=== PATIENT | male | born 2000 | race Caucasian/White ===

== ENCOUNTER 2022-02-17 14:21 | Outpatient (REF) | payer MEDICAID, SELFPAY ==
--- NOTE | ~2022-02-17 | XR_ITS ---
EXAMINATION: XR HAND, RIGHT CLINICAL INFORMATION: Punching injury on Thursday. Pain fifth digit COMPARISON: None TECHNIQUE: PA, lateral, and oblique views of the right hand. FINDINGS: There is a nondisplaced fracture base of fifth metatarsal without angulation. There is mild soft tissue swelling. No additional fracture seen. XR/XR hand RT min 3V IMPRESSION: Fracture proximal/base of fifth metacarpal without displacement or angulation. There is mild soft tissue swelling.
== END 2022-02-17 14:22 | disposition home or self-care (01) ==
LOC: HO.XRAY 14:21
PROVIDERS: PCP Pediatrics
DX: M25.541 Pain in joints of right hand (principal); S62.346A Nondisplaced fracture of base of fifth metacarpal bone, right hand, initial encounter for closed fracture; W22.8XXA Striking against or struck by other objects, initial encounter; Y93.9 Activity, unspecified; Y92.9 Unspecified place or not applicable; Y99.8 Other external cause status
CPT/HCPCS: 73130

== ENCOUNTER → 2022-02-19 08:36 | Outpatient (BNVA) | payer MEDICAID, SELFPAY | PROVIDERS: PCP Pediatrics; Visit Provider Physician Assistant | DX: S62.308A Unspecified fracture of other metacarpal bone, initial encounter for closed fracture (principal) | CPT/HCPCS: 26600; 99202 ==

== ENCOUNTER 2022-04-02 07:46 | Outpatient (REF) | payer MEDICAID, SELFPAY ==
--- NOTE | ~2022-04-02 | XR_ITS ---
EXAMINATION: XR HAND, RIGHT CLINICAL INFORMATION: Fracture COMPARISON: Previous x-ray February 2022 TECHNIQUE: PA, lateral, and oblique views of the right hand. FINDINGS: There is a healing fracture of the base of the fifth metacarpal bone. No new fracture is seen. Joint spaces are normal. Soft tissues are normal. XR/XR hand RT min 3V IMPRESSION: Healing fracture of the base of the fifth metacarpal bone.
== END 2022-04-02 07:47 | disposition home or self-care (01) ==
LOC: HO.HOSX 07:46
PROVIDERS: Visit Provider Physician Assistant
DX: M79.641 Pain in right hand (principal)
CPT/HCPCS: 73130

== ENCOUNTER 2022-04-30 08:03 | Outpatient (REF) | payer MEDICAID, SELFPAY ==
--- NOTE | ~2022-04-30 | XR_ITS ---
EXAMINATION: XR HAND, RIGHT CLINICAL INFORMATION: Right hand pain. COMPARISON: Multiple priors, most recent right hand radiographs dated 04/02/2022. TECHNIQUE: PA, lateral, and oblique views of the right hand. FINDINGS: Redemonstration of a chronic, healed 5th metacarpal fracture in unchanged anatomic alignment with interval new bone formation/bridging when compared to the prior examination. No new fracture or dislocation. No concerning lytic or blastic osseous lesion. No abnormal soft tissue calcification. XR/XR hand RT min 3V IMPRESSION: Fifth metacarpal fracture in unchanged anatomic alignment with interval increase in new bone formation/bridging when compared to the prior examination.
== END 2022-04-30 08:04 | disposition home or self-care (01) ==
LOC: HO.HOSX 08:03
PROVIDERS: Visit Provider Physician Assistant
DX: M79.641 Pain in right hand (principal)
CPT/HCPCS: 73130